=== PATIENT | female | born 1985 ===

== ENCOUNTER 2017-02-11 04:39 | Emergency (ER) | payer SELFPAY ==
[~2017-02-11] VITALS: Ht 162.6 cm; Wt 75.0 kg
[2017-02-11 04:44] VITALS: BP 114/64; PULSE 79; RESP 16; O2SAT 100
--- NOTE | 2017-02-11 04:50 | ED.REPORT ---
HPI-Eye Problem Date of Service Feb 11, 2017 ED Provider: Kelvin Duke MD The patient is a 31 year old female presenting to the ED complaining of left eye pain onset 6 hours prior to arrival in the ED. She claims that she was trying to eat candy and the wrapper scratched her eye. She denies any nausea, vomiting, diarrhea, shortness of breath, fever, or chills. She admitted to having history of opioid medication abuse, but claims she does not any more. Nursing Notes Stated Complaint: L EYE PAIN Chief Complaint: Eye Nursing Notes Reviewed: Yes Allergies: Coded Allergies: No Known Allergies (Unverified Allergy, Unknown, 02/11/17) Scheduled PRN Ibuprofen (Ibuprofen) 400 Mg Tablet 400 MG PO QID PRN PRN For Pain General Time Seen by MD: 04:49 Chief Complaint Pain (left eye) Hx Obtained From: Patient Arrived By: Walk-in Sudden in Onset?: Yes Onset Occurred: 5 - 8 hours ago (6 hours ago) Symptom Duration: Since onset Location: : Eye left Quality: Painful Immunizations: Unknown Recent Healthcare: No recent doctor visit, No recent hospitalization Similar Sx Previous: No Past Medical History Past Medical History None reported Past Surgical History Denies Smoking History Unknown if Ever Smoker Social History Other Social History: Good social support Ambulatory Status Independent Review of Systems Constitutional: Denies: Chills, Fever Eyes: Reports: Eye pain left Complete sys rev & neg: except as marked. Respiratory: Denies: Shortness of breath GI: Denies: Diarrhea, Nausea, Vomiting Physical Exam Initial Vital Signs Vital Signs (First) Date Time Temp Pulse Resp B/P Pulse Ox O2 Delivery O2 Flow Rate FiO2 02/11/17 04:44 36.1 79 16 114/64 100 Room Air Initial VS: Reviewed, Vital signs normal General / Const: Well-developed, Well-nourished Neck: Supple, Non-tender, Full range of motion Respiratory: Breath sounds normal, No respiratory distress Cardiovascular: Regular rate & rhythm, Heart sounds normal Abdomen / GI: Soft, Non-tender Extremities: Vascular intact, Neuro intact, No swelling, No tenderness Skin: Warm, Dry Neurologic: Alert, Oriented Psychiatric: Mood/affect normal, Behavior normal Head / Eyes: Atraumatic, Normocephalic, PERRL Cornea/Anterior Chamber: Positive: Abrasion L... Conjunctiva / Sclera: Positive: Injected left (mild) Visible scratch on the anterior surface of the left cornea Procedures Slit Lamp Exam Time: 04:55 Procedure Performed by: ED physician Which Eye: Left Dilating Agent & Anesthesia: Anesthesia: Tetracaine Eyelid / Conjunctiva / Sclera: Sclera diffuse injection Cornea/Ant Chamber/Iris/Lens: Corneal abrasion (anterior surface) Re-Eval/Medical Decision Med Decision/Clinical Course 31-year-old corneal abrasion sustained from a candy wrapper. Easily demonstrated with fluorescein here. Arthritis ointment 4 times a day, brief Vicodin, ibuprofen, and follow up with ophthalmology. Discharge in stable condition. Re-Evaluation/Progress : Time of Eval: 04:53 Re-Evaluation/Progress Note: Patient rechecked. Slit Lamp Exam performed. Discussed necessary precautions for medication regarding history of opiate abuse. Discussed plan to discharge. All questions addressed at this time. Counseled Regarding: Diagnosis, Need for follow-up, When/why to return to ED Discharge & Departure Primary Impression: Corneal abrasion, left Encounter type: initial encounter Qualified Code: S05.02XA - Injury of conjunctiva and corneal abrasion without foreign body, left eye, initial encounter Disposition: Home Discharge Condition All VS Reviewed: Yes Condition: Improved Patient Instructions: Corneal Abrasion (ED), Opioid Pain Management (ED) Additional Instructions: Ibuprofen initially, then Vicodin sparingly if needed for pain relief. Erythromycin ointment 4-5 times a day for five days Call ophthalmology in the morning for follow-up Wednesday. Return if any immediate issues. Referrals: Radha Eduardo MD (PCP) Scribe Attestation Portions of this note were transcribed by Kyle Camarena. I, Dr. Duke personally performed the history, physical exam and medical decision-making; I reviewed and confirmed the accuracy of the information in the transcribed note. Signed by: Staci Caraballo, 02/11/2017 copies to: Radha Eduardo MD, Christopher W MD Feb 11, 2017 04:50 Feb 11, 2017 04:57
[2017-02-11] MEDS ORDERED: 0.9% Sodium Chloride Inhalation Solution ONE (04:51)
[2017-02-11] MEDS ORDERED: Fluorescein 0.6 mg Ophthalmic Strip ONE (04:51)
[2017-02-11] MEDS ORDERED: Tetracaine 0.5% 4 mL Ophthalmic Solution ONE (04:52)
[2017-02-11] MEDS ORDERED: 0.9% Sodium Chloride Inhalation Solution LEFT_EYE ONE (04:55)
[2017-02-11] MEDS ORDERED: Fluorescein 0.6 mg Ophthalmic Strip LEFT_EYE ONE (04:55)
[2017-02-11] MEDS ORDERED: Tetracaine 0.5% 4 mL Ophthalmic Solution LEFT_EYE ONE (04:55)
[2017-02-11] MEDS ORDERED: TdaP Vaccine 0.5 mL Inj IM ONE (05:15)
[2017-02-11] MEDS ORDERED: _HYDROcodone/APAP 5-325 mg Tablet PO PRN (05:15)
[2017-02-11] MEDS ORDERED: Erythromycin 0.5% 1 Gm Ophthalmic Ointment LEFT_EYE ONE (05:15)
[2017-02-11] MEDS ORDERED: IBUP400T22 PO (05:16)
[2017-02-11] MEDS ORDERED: Erythromycin 0.5% 3.5 Gm Ophthalmic Ointment LEFT_EYE SCH ×2 (05:30→08:30)
== END 2017-02-11 05:51 | disposition home or self-care (01) ==
LOC: SED 04:44
DX: S05.02XA Injury of conjunctiva and corneal abrasion without foreign body, left eye, initial encounter (principal); W26.8XXA Contact with other sharp object(s), not elsewhere classified, initial encounter; Y93.89 Activity, other specified; Y92.89 Other specified places as the place of occurrence of the external cause; Y99.8 Other external cause status; Z23 Encounter for immunization